=== PATIENT | female | born 1945 | race Caucasian/White ===

== ENCOUNTER 2023-04-23 08:09 | Inpatient (IN) | payer MEDICARE ==
[2023-04-23 09:10] LABS: BASOPHILS ABSOLUTE AUTO 0.03 K/uL (0.00-0.10); BASOPHILS PERCENT AUTO 0.2 % (0.1-1.3); EOSINOPHILS ABSOLUTE AUTO 0.11 K/uL (0.00-0.40); EOSINOPHILS PERCENT AUTO 0.8 % (0.0-5.4); HEMATOCRIT 44.7 % (34.3-46.0); HEMOGLOBIN 14.4 g/dL (11.2-15.5); IMMATURE GRAN ABSOLUTE AUTO 0.04 K/uL (0.00-0.23); IMMATURE GRAN PERCENT AUTO 0.3 % (0.0-0.7); LYMPHOCYTES ABSOLUTE AUTO 0.77 K/uL (0.8-3.3); LYMPHOCYTES PERCENT AUTO 5.9 % (11.4-47.7); MEAN CORPUSCULAR HEMOGLOBIN 32.1 pg (31.6-35.5); MEAN CORPUSCULAR HGB CONC 32.2 g/dL (31.6-35.5); MEAN CORPUSCULAR VOLUME 99.8 fL (81.4-99.0); MONOCYTES ABSOLUTE AUTO 0.76 K/uL (0.20-0.90); MONOCYTES PERCENT AUTO 5.9 % (3.3-12.6); NEUTROPHILS ABSOLUTE AUTO 11.25 K/uL (1.0-7.6); NEUTROPHILS PERCENT AUTO 86.9 % (40.0-78.1); PLATELET COUNT,PLT 206 K/uL (130-375); RED BLOOD CELL COUNT 4.48 M/uL (3.77-5.24)
[2023-04-23 09:24] LABS: BICARBONATE,ARTERIAL 33.3 mmol/L (22.0-26.0); CARBOXYHEMOGLOBIN 2.1 % (0.0-1.6); METHEMOGLOBIN 1.2 %; O2 SATURATION ARTERIAL 93.8 % (95.0-98.0); OXYHEMOGLOBIN 90.7 %; PCO2 ARTERIAL 62.6 mmHg (35.0-42.0); PO2 ARTERIAL 73.9 mmHg (75.0-100.0); TOTAL HEMOGLOBIN 13.9 g/dL (12.0-16.0)
[2023-04-23 09:29] LABS: ALANINE AMINOTRANSFERASE,ALT 53 U/L (12-78); ALBUMIN 3.8 g/dL (3.4-5.0); ALKALINE PHOSPHATASE 82 U/L (46-116); ASPARTATE AMNIOTRANSFERASE,AST 32 U/L (15-37); BILIRUBIN TOTAL 0.5 mg/dL (0.2-1.0); BLOOD UREA NITROGEN,BUN 13 mg/dL (7-18); CALCIUM 8.8 mg/dL (8.5-10.1); CARBON DIOXIDE,CO2 33 mmol/L (21-32); CHLORIDE,CL 98 mmol/L (100-108); CREATININE 0.8 mg/dL (0.6-1.0); EST CRCL DRUG DOSING (CG) 53.38 mL/min; ESTIMATED GFR 75 mL/min (>60); GLUCOSE RANDOM 174 mg/dL (74-106); PRO B-TYPE NATRIUR PEPT,BNPPRO 2654 pg/mL (5-450); PROTEIN TOTAL,TP 7.5 g/dL (6.4-8.2); SODIUM,NA 138 mmol/L (140-148); TROPONIN I HIGH SENSITIVITY 8.2 pg/mL (<=60.3)
[2023-04-23 09:33] LABS: CORONAVIRUS COVID-19 NAA NEGATIVE (NEGATIVE); INFLUENZA A NAA NEGATIVE (NEGATIVE); INFLUENZA B NAA NEGATIVE (NEGATIVE); RESPIRATORY SYNCYTIAL VIR NAA NEGATIVE (NEGATIVE)
[2023-04-23] MEDS: Sodium Chloride 0.9% 10 ML Syringe FLUSH PRN (09:39)
[2023-04-23] MEDS: Furosemide 40 MG/4 ML VIAL IVPUSH ONE (10:13)
[2023-04-23] MEDS: Sodium Chloride 0.9% 100 ML IV SCH (11:40)
[2023-04-23] MEDS: Iopamidol 755 Mg/ML 100 ML Bottle IV ONE (11:40)
[2023-04-23] MEDS: Sodium Chloride 0.9% 10 ML Syringe FLUSH ONE (14:57)
[2023-04-24 04:45] LABS: BASOPHILS ABSOLUTE AUTO 0.03 K/uL (0.00-0.10); BASOPHILS PERCENT AUTO 0.4 % (0.1-1.3); EOSINOPHILS ABSOLUTE AUTO 0.15 K/uL (0.00-0.40); EOSINOPHILS PERCENT AUTO 1.8 % (0.0-5.4); HEMATOCRIT 41.7 % (34.3-46.0); HEMOGLOBIN 13.2 g/dL (11.2-15.5); IMMATURE GRAN ABSOLUTE AUTO 0.03 K/uL (0.00-0.23); IMMATURE GRAN PERCENT AUTO 0.4 % (0.0-0.7); LYMPHOCYTES ABSOLUTE AUTO 0.79 K/uL (0.8-3.3); LYMPHOCYTES PERCENT AUTO 9.6 % (11.4-47.7); MEAN CORPUSCULAR HEMOGLOBIN 31.8 pg (31.6-35.5); MEAN CORPUSCULAR HGB CONC 31.7 g/dL (31.6-35.5); MEAN CORPUSCULAR VOLUME 100.5 fL (81.4-99.0); MONOCYTES ABSOLUTE AUTO 0.68 K/uL (0.20-0.90); MONOCYTES PERCENT AUTO 8.3 % (3.3-12.6); NEUTROPHILS ABSOLUTE AUTO 6.56 K/uL (1.0-7.6); NEUTROPHILS PERCENT AUTO 79.5 % (40.0-78.1); PLATELET COUNT,PLT 158 K/uL (130-375); RED BLOOD CELL COUNT 4.15 M/uL (3.77-5.24); WHITE BLOOD CELL COUNT,WBC 8.2 K/uL (3.2-11.0)
[2023-04-24] MEDS: Digoxin 125 MCG Tab PO ONE (07:36)
[2023-04-24] MEDS: Metoprolol Succinate 50 MG Tab.ER PO SCH (08:36)
[2023-04-24] MEDS: Aspirin 81 MG Tab.EC PO SCH (08:36)
[2023-04-24] MEDS: Lisinopril 20 MG Tab PO SCH (08:37)
[2023-04-24] MEDS: Magnesium Oxide 400 MG Tab PO SCH (08:37)
[2023-04-24] MEDS: amLODIPine 5 MG Tab PO SCH (08:38)
[2023-04-24] MEDS: Multivitamins with Iron/Calcium/Folic Acid/Minerals Tab PO SCH (08:38)
[2023-04-24] MEDS: Furosemide 20 MG/2 ML VIAL IVPUSH ONE (10:28)
[2023-04-24] MEDS: Spironolactone 25 MG Tab PO SCH (10:29)
[2023-04-24] MEDS: Apixaban 5 MG Tab PO SCH (10:38)
[2023-04-24] MEDS: Diltiazem 25 MG/5 ML SDV IVPUSH ONE (11:01)
[2023-04-24] MEDS ORDERED: Digoxin 125 MCG Tab PO ONE (12:00)
[2023-04-24 12:01] LABS: ALBUMIN 3.1 g/dL (3.4-5.0); BLOOD UREA NITROGEN,BUN 7 mg/dL (7-18); CALCIUM 8.7 mg/dL (8.5-10.1); CARBON DIOXIDE,CO2 42 mmol/L (21-32); CHLORIDE,CL 100 mmol/L (100-108); CREATININE 0.8 mg/dL (0.6-1.0); EST CRCL DRUG DOSING (CG) 51.31 mL/min; ESTIMATED GFR 75 mL/min (>60); GLUCOSE RANDOM 130 mg/dL (74-106); PHOSPHORUS 4.3 mg/dL (2.5-4.9); SODIUM,NA 142 mmol/L (140-148)
[2023-04-24 12:10] LABS: MAGNESIUM 2.1 mg/dL (1.8-2.4)
[2023-04-24] MEDS ORDERED: Digoxin 125 MCG Tab PO SCH (13:00)
[2023-04-24] MEDS: Diltiazem IR 30 MG Tab PO SCH (16:08)
[2023-04-25 08:40] LABS: HEMATOCRIT 43.9 % (34.3-46.0); HEMOGLOBIN 13.8 g/dL (11.2-15.5); MEAN CORPUSCULAR HEMOGLOBIN 31.7 pg (31.6-35.5); MEAN CORPUSCULAR HGB CONC 31.4 g/dL (31.6-35.5); MEAN CORPUSCULAR VOLUME 100.7 fL (81.4-99.0); RED BLOOD CELL COUNT 4.36 M/uL (3.77-5.24); WHITE BLOOD CELL COUNT,WBC 8.9 K/uL (3.2-11.0)
[2023-04-25 09:04] LABS: A/G RATIO 0.8 (1.2-2.2); ALANINE AMINOTRANSFERASE,ALT 34 U/L (12-78); ALBUMIN 3.1 g/dL (3.4-5.0); ALKALINE PHOSPHATASE 73 U/L (46-116); ANION GAP 5.2 mmol/L (5.0-14.0); ASPARTATE AMNIOTRANSFERASE,AST 12 U/L (15-37); BILIRUBIN DIRECT 0.15 mg/dL (0.0-0.2); BILIRUBIN INDIRECT 0.35; BILIRUBIN TOTAL 0.5 mg/dL (0.2-1.0); BLOOD UREA NITROGEN,BUN 10 mg/dL (7-18); CALCIUM 8.7 mg/dL (8.5-10.1); CARBON DIOXIDE,CO2 40 mmol/L (21-32); CHLORIDE,CL 98 mmol/L (100-108); CREATININE 0.7 mg/dL (0.6-1.0); EST CRCL DRUG DOSING (CG) 58.64 mL/min; ESTIMATED GFR 88 mL/min (>60); GLUCOSE RANDOM 183 mg/dL (74-106); PHOSPHORUS 3.2 mg/dL (2.5-4.9); POTASSIUM,K 4.2 mmol/L (3.6-5.2); PROTEIN TOTAL,TP 6.8 g/dL (6.4-8.2); SODIUM,NA 139 mmol/L (140-148)
[2023-04-25 09:05] LABS: C-REACTIVE PROTEIN 4.84 mg/dL (<0.50)
[2023-04-25] MEDS: Diltiazem 120 MG Cap.CD PO SCH (11:26)
[2023-04-26] MEDS: Lisinopril 2.5 MG Tab PO SCH (08:49)
[2023-04-26] MEDS: Furosemide 20 MG/2 ML VIAL IVPUSH SCH (19:19)
[2023-04-27 06:32] LABS: CALCIUM 8.7 mg/dL (8.5-10.1); CREATININE 0.7 mg/dL (0.6-1.0); EST CRCL DRUG DOSING (CG) 58.64 mL/min; POTASSIUM,K 4.5 mmol/L (3.6-5.2)
[2023-04-27 06:33] LABS: ANION GAP 8.5 mmol/L (5.0-14.0)
== END 2023-04-27 14:43 | disposition home or self-care (01) | DRG 291 ==
LOC: JP.ED 08:09 → JP.MS 13:09
PROVIDERS: ADMIT Internal Medicine; ATTEND Hospitalist
DX: I50.31 Acute diastolic (congestive) heart failure (principal); I11.0 Hypertensive heart disease with heart failure; I50.33 Acute on chronic diastolic (congestive) heart failure; J96.21 Acute and chronic respiratory failure with hypoxia; I48.91 Unspecified atrial fibrillation; E11.9 Type 2 diabetes mellitus without complications; J44.9 Chronic obstructive pulmonary disease, unspecified; E78.5 Hyperlipidemia, unspecified; E66.9 Obesity, unspecified; J43.1 Panlobular emphysema; Z79.82 Long term (current) use of aspirin; Z79.899 Other long term (current) drug therapy; Z87.891 Personal history of nicotine dependence; Z11.52 Encounter for screening for COVID-19; Z68.30 Body mass index [BMI] 30.0-30.9, adult
CPT/HCPCS: 0241U; 36415; 36600; 71045; 71275; 80048; 80053; 80069; 80076; 82803; 82947; 83605; 83735; 83880; 84484; 85025; 85027; 85379; 86140; 93005; 96374; 99285; 93010; 99232; 99238; A9270-GY; J1940; J3490; Q9967

== ENCOUNTER 2024-03-24 15:46 | Inpatient (IN) | payer MEDICARE ==
[2024-03-24] MEDS ORDERED: Sodium Chloride 0.9% 10 ML Syringe FLUSH PRN ×2 (16:11→18:05)
[2024-03-24 16:25] LABS: BASOPHILS PERCENT AUTO 0.1 % (0.1-1.3); EOSINOPHILS PERCENT AUTO 0.2 % (0.0-5.4); HEMATOCRIT 32.2 % (34.3-46.0); HEMOGLOBIN 9.8 g/dL (11.2-15.5); IMMATURE GRAN ABSOLUTE AUTO 0.07 K/uL (0.00-0.23); IMMATURE GRAN PERCENT AUTO 0.8 % (0.0-0.7); LYMPHOCYTES ABSOLUTE AUTO 0.72 K/uL (0.8-3.3); LYMPHOCYTES PERCENT AUTO 8.1 % (11.4-47.7); MEAN CORPUSCULAR HGB CONC 30.4 g/dL (31.6-35.5); MEAN CORPUSCULAR VOLUME 98.5 fL (81.4-99.0); MONOCYTES ABSOLUTE AUTO 0.69 K/uL (0.20-0.90); MONOCYTES PERCENT AUTO 7.8 % (3.3-12.6); NEUTROPHILS ABSOLUTE AUTO 7.37 K/uL (1.0-7.6); PLATELET COUNT,PLT 214 K/uL (130-375); RED BLOOD CELL COUNT 3.27 M/uL (3.77-5.24); WHITE BLOOD CELL COUNT,WBC 8.9 K/uL (3.2-11.0)
[2024-03-24 16:27] LABS: BASOPHILS ABSOLUTE AUTO 0.01 K/uL (0.00-0.10); EOSINOPHILS ABSOLUTE AUTO 0.02 K/uL (0.00-0.40)
[2024-03-24 16:46] LABS: C-REACTIVE PROTEIN 0.89 mg/dL (<0.50); CALCIUM 8.8 mg/dL (8.5-10.1); CREATININE 1.4 mg/dL (0.6-1.0); EST CRCL DRUG DOSING (CG) 28.84 mL/min; INR 2.6; POTASSIUM,K 5.3 mmol/L (3.6-5.2); PROTHROMBIN TIME 25.4 sec (9.2-10.6)
[2024-03-24 16:55] LABS: ANION GAP 14.3 mmol/L (5.0-14.0)
[2024-03-24 16:57] LABS: LACTIC ACID 4.3 mmol/L (0.4-2.0)
[2024-03-24] MEDS: Sodium Chloride 0.9% 1,000 ML IV ONE (17:33)
[2024-03-24] MEDS: cefTRIAXone 2 GM in Sodium Chloride 0.9% 50 ML IV ONE (17:33)
[2024-03-24 18:45] LABS: BILIRUBIN,URINE NEGATIVE (NEGATIVE); COLOR,URINE YELLOW (YELLOW); GLUCOSE,URINE NEGATIVE (NEGATIVE); KETONES,URINE NEGATIVE (NEGATIVE); LEUKOCYTE ESTERASE,URINE NEGATIVE (NEGATIVE); NITRITE,URINE NEGATIVE (NEGATIVE); OCCULT BLOOD,URINE NEGATIVE (NEGATIVE); PROTEIN,URINE 100 mg/dL (NEGATIVE); UROBILINOGEN,URINE 0.2 EU/dL (0.2-1.0)
[2024-03-24 18:57] LABS: AMORPHOUS SEDIMENT,URINE NOT SEEN; APPEARANCE,URINE CLEAR (CLEAR); BACTERIA,URINE RARE; EPITHELIAL CELLS,URINE RARE; MUCUS,URINE RARE; RBC,URINE 0-5 (0-5); WBC,URINE 0-5 (0-5)
[2024-03-24] MEDS: Sodium Chloride 0.9% 1,000 ML IV SCH (20:20)
[2024-03-24] MEDS ORDERED: Ondansetron 4 MG Tab.DIS PO PRN (21:02)
[2024-03-24] MEDS ORDERED: Ondansetron 4 MG/2 ML SDV IVPUSH PRN (21:02)
[2024-03-25 05:22] LABS: BASOPHILS PERCENT AUTO 0.2 % (0.1-1.3); HEMATOCRIT 28.1 % (34.3-46.0); HEMOGLOBIN 8.8 g/dL (11.2-15.5); IMMATURE GRAN ABSOLUTE AUTO 0.05 K/uL (0.00-0.23); IMMATURE GRAN PERCENT AUTO 0.6 % (0.0-0.7); LYMPHOCYTES ABSOLUTE AUTO 1.07 K/uL (0.8-3.3); LYMPHOCYTES PERCENT AUTO 12.2 % (11.4-47.7); MEAN CORPUSCULAR HEMOGLOBIN 30.2 pg (31.6-35.5); MEAN CORPUSCULAR HGB CONC 31.3 g/dL (31.6-35.5); MEAN CORPUSCULAR VOLUME 96.6 fL (81.4-99.0); MONOCYTES PERCENT AUTO 10.3 % (3.3-12.6); NEUTROPHILS PERCENT AUTO 76.7 % (40.0-78.1); PLATELET COUNT,PLT 205 K/uL (130-375); RED BLOOD CELL COUNT 2.91 M/uL (3.77-5.24); WHITE BLOOD CELL COUNT,WBC 8.7 K/uL (3.2-11.0)
[2024-03-25 05:39] LABS: BASOPHILS ABSOLUTE AUTO 0.02 K/uL (0.00-0.10)
[2024-03-25 05:48] LABS: A/G RATIO 1.1 (1.2-2.2); ALANINE AMINOTRANSFERASE,ALT 199 U/L (12-78); ALBUMIN 3.2 g/dL (3.4-5.0); ALKALINE PHOSPHATASE 76 U/L (46-116); ASPARTATE AMNIOTRANSFERASE,AST 262 U/L (15-37); BILIRUBIN TOTAL 0.3 mg/dL (0.2-1.0); BLOOD UREA NITROGEN,BUN 22 mg/dL (7-18); CALCIUM 8.1 mg/dL (8.5-10.1); CARBON DIOXIDE,CO2 32 mmol/L (21-32); CHLORIDE,CL 101 mmol/L (100-108); CREATININE 1.6 mg/dL (0.6-1.0); EST CRCL DRUG DOSING (CG) 25.23 mL/min; ESTIMATED GFR 32 mL/min (>60); GLUCOSE RANDOM 136 mg/dL (74-106); POTASSIUM,K 5.7 mmol/L (3.6-5.2); PROTEIN TOTAL,TP 6.2 g/dL (6.4-8.2); SODIUM,NA 138 mmol/L (140-148)
[2024-03-25 05:49] LABS: ANION GAP 10.7 mmol/L (5.0-14.0)
[2024-03-25 08:45] LABS: INR 3.3; PROTHROMBIN TIME 31.9 sec (9.2-10.6)
[2024-03-25] MEDS: Sodium Polystyrene Sulfonate 15 GM/60 ML Susp 60 ML Bot PO ONE (10:57)
[2024-03-25] MEDS: Warfarin 5 MG Tab PO ONE (17:42)
[2024-03-25] MEDS: Warfarin** 1 MG TABLET PO ONE (17:42)
[2024-03-25 18:13] LABS: CALCIUM 7.9 mg/dL (8.5-10.1); CREATININE 1.2 mg/dL (0.6-1.0); EST CRCL DRUG DOSING (CG) 33.65 mL/min; POTASSIUM,K 4.3 mmol/L (3.6-5.2)
[2024-03-25 18:14] LABS: ANION GAP 8.3 mmol/L (5.0-14.0)
[2024-03-26 05:57] LABS: CREATININE 0.9 mg/dL (0.6-1.0); EST CRCL DRUG DOSING (CG) 44.86 mL/min; POTASSIUM,K 4.2 mmol/L (3.6-5.2)
[2024-03-26 05:58] LABS: ANION GAP 8.2 mmol/L (5.0-14.0)
[2024-03-26 05:59] LABS: INR 2.6; PROTHROMBIN TIME 25.2 sec (9.2-10.6)
[2024-03-26] MEDS: Warfarin 5 MG Tab PO ONE (14:24)
[2024-03-26] MEDS: Warfarin** 1 MG TABLET PO ONE (14:24)
[2024-03-26] MEDS: Verapamil 120 MG Tab.ER PO SCH (18:11)
[2024-03-27 05:59] LABS: BASOPHILS ABSOLUTE AUTO 0.03 K/uL (0.00-0.10); BASOPHILS PERCENT AUTO 0.4 % (0.1-1.3); EOSINOPHILS ABSOLUTE AUTO 0.12 K/uL (0.00-0.40); EOSINOPHILS PERCENT AUTO 1.5 % (0.0-5.4); HEMATOCRIT 30.3 % (34.3-46.0); HEMOGLOBIN 9.2 g/dL (11.2-15.5); IMMATURE GRAN ABSOLUTE AUTO 0.08 K/uL (0.00-0.23); LYMPHOCYTES ABSOLUTE AUTO 0.72 K/uL (0.8-3.3); MEAN CORPUSCULAR HEMOGLOBIN 29.9 pg (31.6-35.5); MEAN CORPUSCULAR HGB CONC 30.4 g/dL (31.6-35.5); MEAN CORPUSCULAR VOLUME 98.4 fL (81.4-99.0); MONOCYTES ABSOLUTE AUTO 0.58 K/uL (0.20-0.90); MONOCYTES PERCENT AUTO 7.3 % (3.3-12.6); NEUTROPHILS ABSOLUTE AUTO 6.43 K/uL (1.0-7.6); NEUTROPHILS PERCENT AUTO 80.8 % (40.0-78.1); PLATELET COUNT,PLT 222 K/uL (130-375); RED BLOOD CELL COUNT 3.08 M/uL (3.77-5.24)
[2024-03-27 06:21] LABS: INR 2.7; PROTHROMBIN TIME 26.6 sec (9.2-10.6)
[2024-03-27 06:25] LABS: ALANINE AMINOTRANSFERASE,ALT 114 U/L (12-78); ALBUMIN 3.3 g/dL (3.4-5.0); ALKALINE PHOSPHATASE 74 U/L (46-116); ASPARTATE AMNIOTRANSFERASE,AST 59 U/L (15-37); BILIRUBIN TOTAL 0.5 mg/dL (0.2-1.0); BLOOD UREA NITROGEN,BUN 7 mg/dL (7-18); CALCIUM 8.1 mg/dL (8.5-10.1); CARBON DIOXIDE,CO2 32 mmol/L (21-32); CHLORIDE,CL 104 mmol/L (100-108); CREATININE 0.7 mg/dL (0.6-1.0); EST CRCL DRUG DOSING (CG) 57.68 mL/min; ESTIMATED GFR 87 mL/min (>60); GLUCOSE RANDOM 135 mg/dL (74-106); POTASSIUM,K 4.2 mmol/L (3.6-5.2); PROTEIN TOTAL,TP 6.5 g/dL (6.4-8.2); SODIUM,NA 142 mmol/L (140-148)
[2024-03-27] MEDS: Verapamil 120 MG Tab.ER PO ONE (09:06)
[2024-03-27] MEDS: Metoprolol Succinate 50 MG Tab.ER PO SCH (09:06)
[2024-03-28] MEDS ORDERED: Verapamil 120 MG Tab.ER PO SCH (09:00)
== END 2024-03-27 16:54 | disposition home or self-care (01) | DRG 641 ==
LOC: JP.ED 15:46 → JP.MS 17:56
PROVIDERS: ADMIT Internal Medicine; ATTEND Internal Medicine
DX: E86.0 Dehydration (principal); N17.9 Acute kidney failure, unspecified; E87.20 Acidosis, unspecified; I95.9 Hypotension, unspecified; I10 Essential (primary) hypertension; F15.90 Other stimulant use, unspecified, uncomplicated; H91.90 Unspecified hearing loss, unspecified ear; J44.9 Chronic obstructive pulmonary disease, unspecified; E87.5 Hyperkalemia; Z86.16 Personal history of COVID-19; Z79.82 Long term (current) use of aspirin; Z79.01 Long term (current) use of anticoagulants; Z79.899 Other long term (current) drug therapy; Z90.710 Acquired absence of both cervix and uterus; Z98.890 Other specified postprocedural states
CPT/HCPCS: 36415; 71046 ×2; 80048; 82009; 82271; 83605; 84145; 85025; 85610; 86140; 87040; 87428; 93005; 96365; 99285; J0696; J3490; J7030; 76770; 80053; 81001; 93010; 97161-GP; A9270-GY

== ENCOUNTER 2024-04-22 15:27 | Emergency (ER) | payer MEDICARE ==
[2024-04-22] MEDS ORDERED: HYDROmorphone 1 MG/ML Syringe IVPUSH PRN (16:52)
[2024-04-22 17:06] LABS: BASOPHILS PERCENT AUTO 0.2 % (0.1-1.3); EOSINOPHILS ABSOLUTE AUTO 0.07 K/uL (0.00-0.40); EOSINOPHILS PERCENT AUTO 0.9 % (0.0-5.4); HEMATOCRIT 34.2 % (34.3-46.0); HEMOGLOBIN 10.4 g/dL (11.2-15.5); IMMATURE GRAN ABSOLUTE AUTO 0.03 K/uL (0.00-0.23); IMMATURE GRAN PERCENT AUTO 0.4 % (0.0-0.7); LYMPHOCYTES ABSOLUTE AUTO 0.56 K/uL (0.8-3.3); LYMPHOCYTES PERCENT AUTO 6.8 % (11.4-47.7); MEAN CORPUSCULAR HEMOGLOBIN 29.1 pg (31.6-35.5); MEAN CORPUSCULAR HGB CONC 30.4 g/dL (31.6-35.5); MEAN CORPUSCULAR VOLUME 95.5 fL (81.4-99.0); MONOCYTES PERCENT AUTO 6.1 % (3.3-12.6); NEUTROPHILS ABSOLUTE AUTO 7.03 K/uL (1.0-7.6); NEUTROPHILS PERCENT AUTO 85.6 % (40.0-78.1); PLATELET COUNT,PLT 239 K/uL (130-375); RED BLOOD CELL COUNT 3.58 M/uL (3.77-5.24); WHITE BLOOD CELL COUNT,WBC 8.2 K/uL (3.2-11.0)
[2024-04-22 17:07] LABS: BASOPHILS ABSOLUTE AUTO 0.02 K/uL (0.00-0.10)
[2024-04-22] MEDS: Sodium Chloride 0.9% 1,000 ML IV ONE (17:10)
[2024-04-22 17:27] LABS: A/G RATIO 1.2 (1.2-2.2); ALANINE AMINOTRANSFERASE,ALT 23 U/L (12-78); ALKALINE PHOSPHATASE 82 U/L (46-116); ASPARTATE AMNIOTRANSFERASE,AST 25 U/L (15-37); BILIRUBIN TOTAL 0.6 mg/dL (0.2-1.0); BLOOD UREA NITROGEN,BUN 14 mg/dL (7-18); CARBON DIOXIDE,CO2 34 mmol/L (21-32); CHLORIDE,CL 100 mmol/L (100-108); CREATININE 0.9 mg/dL (0.6-1.0); EST CRCL DRUG DOSING (CG) 44.86 mL/min; ESTIMATED GFR 65 mL/min (>60); GLUCOSE RANDOM 144 mg/dL (74-106); PROTEIN TOTAL,TP 7.4 g/dL (6.4-8.2); SODIUM,NA 142 mmol/L (140-148)
[2024-04-22 18:11] LABS: APPEARANCE,URINE SLIGHTLY CLOUDY (CLEAR); BILIRUBIN,URINE NEGATIVE (NEGATIVE); COLOR,URINE YELLOW (YELLOW); GLUCOSE,URINE NEGATIVE (NEGATIVE); KETONES,URINE NEGATIVE (NEGATIVE); LEUKOCYTE ESTERASE,URINE TRACE (NEGATIVE); NITRITE,URINE NEGATIVE (NEGATIVE); OCCULT BLOOD,URINE NEGATIVE (NEGATIVE); PH,URINE 6.5 (5.0-8.0); PROTEIN,URINE 30 mg/dL (NEGATIVE); UROBILINOGEN,URINE 0.2 EU/dL (0.2-1.0)
[2024-04-22 18:19] LABS: AMORPHOUS SEDIMENT,URINE NOT SEEN; BACTERIA,URINE MODERATE; EPITHELIAL CELLS,URINE FEW; MUCUS,URINE FEW; RBC,URINE NOT SEEN (0-5)
[2024-04-22] MEDS: metroNIDAZOLE/Normal Saline 500 MG in Premix Bag 1 BAG IV ONE (18:57)
[2024-04-22] MEDS: Ciprofloxacin in D5W 400 MG in Premix Bag 1 BAG IV ONE (19:35)
[2024-04-22] MEDS: Ondansetron 4 MG/2 ML SDV IVPUSH PRN (19:37)
== END 2024-04-22 21:34 | disposition home or self-care (01) ==
LOC: JP.ED 15:27
DX: K57.92 Diverticulitis of intestine, part unspecified, without perforation or abscess without bleeding (principal); I11.0 Hypertensive heart disease with heart failure; I50.9 Heart failure, unspecified; Z79.82 Long term (current) use of aspirin; Z79.01 Long term (current) use of anticoagulants; Z79.899 Other long term (current) drug therapy; Z90.710 Acquired absence of both cervix and uterus
CPT/HCPCS: 36415; 74176; 80053; 81001; 83605; 85025; 96361; 96365; 96367; 96375; 99284; J0744; J1836; J2405

== ENCOUNTER 2025-01-29 15:38 | Inpatient (IN) | payer MEDICARE ==
[2025-01-29 16:31] LABS: INR 6.0
[2025-01-29 16:46] LABS: LACTIC ACID 1.3 mmol/L (0.4-2.0)
[2025-01-29 16:57] LABS: RETICULOCYTE COUNT PERCENT 2.51 % (0.53-2.48)
[2025-01-29 19:46] LABS: APPEARANCE,URINE CLOUDY (CLEAR); GLUCOSE,URINE NEGATIVE (NEGATIVE); OCCULT BLOOD,URINE NEGATIVE (NEGATIVE)
[2025-01-29 19:52] LABS: SQUAMOUS EPITHELIAL CELLS,UR MANY /HPF; UROTHELIAL CELLS,URINE NOT SEEN /HPF
[2025-01-29] MEDS: Verapamil 120 MG Tab.ER PO SCH (20:05)
[2025-01-30 05:58] LABS: BASOPHILS ABSOLUTE AUTO 0.04 K/uL (0.00-0.10); BASOPHILS PERCENT AUTO 0.5 % (0.1-1.3); EOSINOPHILS ABSOLUTE AUTO 0.06 K/uL (0.00-0.40); EOSINOPHILS PERCENT AUTO 0.7 % (0.0-5.4); IMMATURE GRAN ABSOLUTE AUTO 0.05 K/uL (0.00-0.23); IMMATURE GRAN PERCENT AUTO 0.6 % (0.0-0.7); LYMPHOCYTES ABSOLUTE AUTO 0.39 K/uL (0.8-3.3); LYMPHOCYTES PERCENT AUTO 4.4 % (11.4-47.7); MONOCYTES ABSOLUTE AUTO 0.84 K/uL (0.20-0.90); MONOCYTES PERCENT AUTO 9.5 % (3.3-12.6); NEUTROPHILS ABSOLUTE AUTO 7.50 K/uL (1.0-7.6); NEUTROPHILS PERCENT AUTO 84.3 % (40.0-78.1); PLATELET COUNT,PLT 208 K/uL (130-375); WHITE BLOOD CELL COUNT,WBC 8.9 K/uL (3.2-11.0)
[2025-01-30 06:05] LABS: RED BLOOD CELL COUNT 3.30 M/uL (3.77-5.24)
[2025-01-30 06:24] LABS: A/G RATIO 1.0 (1.2-2.2); ALANINE AMINOTRANSFERASE,ALT 21 U/L (12-78); ASPARTATE AMNIOTRANSFERASE,AST 16 U/L (15-37); BILIRUBIN TOTAL 0.7 mg/dL (0.2-1.0); BLOOD UREA NITROGEN,BUN 20 mg/dL (7-18); CARBON DIOXIDE,CO2 40 mmol/L (21-32); CHLORIDE,CL 97 mmol/L (100-108); CREATININE 0.7 mg/dL (0.6-1.0); EST CRCL DRUG DOSING (CG) 59.01 mL/min; ESTIMATED GFR 87 mL/min (>60); GLUCOSE RANDOM 137 mg/dL (74-106); POTASSIUM,K 4.7 mmol/L (3.6-5.2); PROTEIN TOTAL,TP 6.9 g/dL (6.4-8.2); SODIUM,NA 139 mmol/L (140-148)
[2025-01-30 08:50] LABS: INR 6.5
[2025-01-30] MEDS ORDERED: WARFARIN SODIUM 6 MG PO SCH (09:00)
[2025-01-30 09:54] LABS: CORONAVIRUS COVID-19 NAA NEGATIVE (NEGATIVE); INFLUENZA A NAA NEGATIVE (NEGATIVE); INFLUENZA B NAA NEGATIVE (NEGATIVE); RESPIRATORY SYNCYTIAL VIR NAA NEGATIVE (NEGATIVE)
[2025-01-30] MEDS: Sodium Chloride 0.9% 10 ML Syringe FLUSH PRN (10:54)
[2025-01-30] MEDS: Iopamidol 612 MG/ML 100 ML Bottle IV PRN (10:55)
[2025-01-30] MEDS: Piperacillin/Tazobactam/Dext 4.5 GM in Premix Bag 1 BAG IV ONE (16:44)
[2025-01-30] MEDS ORDERED: Albuterol 0.083% 2.5 MG/3 ML Neb Soln NEB PRN (19:42)
[2025-01-30] MEDS: Formoterol/Mometasone 200-5 MCG 8.8 GM Inhaler IH SCH (21:10)
[2025-01-30] MEDS: Piperacillin/Tazobactam/Dext 4.5 GM in Premix Bag 1 BAG IV SCH (21:10)
[2025-01-31 01:47] LABS: BASE EXCESS ARTERIAL 11.2 mm/L; BICARBONATE,ARTERIAL 40.0 mmol/L (22.0-26.0); O2 SATURATION ARTERIAL 87.5 % (95.0-98.0); OXYHEMOGLOBIN 85.0 %; PO2 ARTERIAL 54.2 mmHg (75.0-100.0); TOTAL HEMOGLOBIN 10.0 g/dL (12.0-16.0)
[2025-01-31 01:49] LABS: PCO2 ARTERIAL 87.7 mmHg (35.0-42.0)
[2025-01-31 05:44] LABS: BASE EXCESS VENOUS 12.2 mm/L; BICARBONATE,VENOUS 40.3 mmol/L; O2 SATURATION VENOUS 67.6; OXYHEMOGLOBIN 65.2 %; PCO2 VENOUS 79.5 mm/Hg; PH,VENOUS 7.325 (7.350-7.450); PO2 VENOUS 42.1 mm/Hg; TOTAL HEMOGLOBIN 9.9 g/dL (12.0-16.0)
[2025-01-31 06:01] LABS: INR 1.7
[2025-01-31 08:33] LABS: BASOPHILS ABSOLUTE AUTO 0.04 K/uL (0.00-0.10); BASOPHILS PERCENT AUTO 0.5 % (0.1-1.3); EOSINOPHILS ABSOLUTE AUTO 0.11 K/uL (0.00-0.40); EOSINOPHILS PERCENT AUTO 1.5 % (0.0-5.4); IMMATURE GRAN ABSOLUTE AUTO 0.04 K/uL (0.00-0.23); IMMATURE GRAN PERCENT AUTO 0.5 % (0.0-0.7); LYMPHOCYTES ABSOLUTE AUTO 0.31 K/uL (0.8-3.3); LYMPHOCYTES PERCENT AUTO 4.2 % (11.4-47.7); MONOCYTES ABSOLUTE AUTO 0.82 K/uL (0.20-0.90); MONOCYTES PERCENT AUTO 11.2 % (3.3-12.6); NEUTROPHILS ABSOLUTE AUTO 6.00 K/uL (1.0-7.6); NEUTROPHILS PERCENT AUTO 82.1 % (40.0-78.1); PLATELET COUNT,PLT 158 K/uL (130-375); RED BLOOD CELL COUNT 3.18 M/uL (3.77-5.24); WHITE BLOOD CELL COUNT,WBC 7.3 K/uL (3.2-11.0)
[2025-01-31 08:43] LABS: A/G RATIO 0.9 (1.2-2.2); ALANINE AMINOTRANSFERASE,ALT 13 U/L (12-78); ASPARTATE AMNIOTRANSFERASE,AST 13 U/L (15-37); BILIRUBIN TOTAL 1.1 mg/dL (0.2-1.0); BLOOD UREA NITROGEN,BUN 19 mg/dL (7-18); CARBON DIOXIDE,CO2 42 mmol/L (21-32); CHLORIDE,CL 99 mmol/L (100-108); CREATININE 0.7 mg/dL (0.6-1.0); EST CRCL DRUG DOSING (CG) 59.01 mL/min; ESTIMATED GFR 87 mL/min (>60); GLUCOSE RANDOM 117 mg/dL (74-106); POTASSIUM,K 4.4 mmol/L (3.6-5.2); PROTEIN TOTAL,TP 6.2 g/dL (6.4-8.2); SODIUM,NA 141 mmol/L (140-148)
== END 2025-01-31 12:30 | DRG 871 ==
LOC: JP.ICU 15:38
PROVIDERS: ADMIT Internal Medicine; ATTEND Internal Medicine
PROC: 3E03329 Introduction of Other Anti-infective into Peripheral Vein, Percutaneous Approach (ICD-10-PCS; principal; 2025-01-29)
PROC: 5A0935A Assistance with Respiratory Ventilation, Less than 24 Consecutive Hours, High Flow/Velocity Cannula (ICD-10-PCS; 2025-01-30)
PROC: 4A133R1 Monitoring of Arterial Saturation, Peripheral, Percutaneous Approach (ICD-10-PCS; 2025-01-31)
PROC: 5A09357 Assistance with Respiratory Ventilation, Less than 24 Consecutive Hours, Continuous Positive Airway Pressure (ICD-10-PCS; 2025-01-31)
DX: A41.9 Sepsis, unspecified organism (principal); J18.9 Pneumonia, unspecified organism; J44.0 Chronic obstructive pulmonary disease with (acute) lower respiratory infection; F17.210 Nicotine dependence, cigarettes, uncomplicated; H91.90 Unspecified hearing loss, unspecified ear; H54.7 Unspecified visual loss; I11.0 Hypertensive heart disease with heart failure; I50.9 Heart failure, unspecified; I48.91 Unspecified atrial fibrillation; J43.9 Emphysema, unspecified; D64.9 Anemia, unspecified; R79.89 Other specified abnormal findings of blood chemistry; R09.02 Hypoxemia; Z90.710 Acquired absence of both cervix and uterus; Z95.810 Presence of automatic (implantable) cardiac defibrillator; Z79.82 Long term (current) use of aspirin; Z79.01 Long term (current) use of anticoagulants; Z79.899 Other long term (current) drug therapy; Z98.890 Other specified postprocedural states
CPT/HCPCS: 36415; 36600; 71275; 71275-26; 80053; 81001; 82803; 83605; 83880; 85025; 85045; 85610; 87040; 87070; 87075; 87077; 87205; 87637; 93306; 94640; 94660; A9270-GY; J0696; J2543; J3373; J3374; J7050; Q9967